=== PATIENT | male | born 1945 | race Caucasian/White ===

== ENCOUNTER 2022-04-22 15:16 | Inpatient (IN) | payer OTHER ==
[~2022-04-22] VITALS: Ht 185.4 cm; Wt 133.4 kg
--- NOTE | 2022-04-22 15:30 | NUR ---
BIB [facility] C/O SOB AND DESATURATION AT [facility] PROGRAM/MUSIC DIRECTOR; HX OF COPD. PLACED ON BED, AAOX4, DYSPNEIC RR- 25, SATURATING AT 96% WITH NRM. MD AND NETWORK DIAGNOSTIC SUPPORT SPECIALIST AT BEDSIDE.
[2022-04-22] MEDS ORDERED: IPRATROPIUM NEB FS 0.5 MG/2.5 ML AMPUL.NEB ONE (15:40)
[2022-04-22] MEDS ORDERED: ALBUTEROL FS 2.5 MG/3 ML VIAL.NEB ONE (15:40)
[2022-04-22] MEDS ORDERED: methylPREDNISolone SOD SUCC 125 MG/2ML VIAL ONE (15:47)
[2022-04-22 15:51] LABS: BASOPHILS % (AUTO) 0.2 % (0.0-2.0); EOSINOPHILS % (AUTO) 5.1 % (0.0-6.0); HEMATOCRIT 41 % (39-51); HEMOGLOBIN 13.1 g/dL (13.5-17.5); LYMPHOCYTES # (AUTO) 1.3 K/uL (0.8-4.8); LYMPHOCYTES % (AUTO) 12.2 % (20.0-44.0); MEAN CORPUSCULAR HGB CONC 32 g/dl (31.0-36.0); MEAN CORPUSCULAR VOLUME 96 fL (80-96); MONOCYTES # (AUTO) 1.3 K/uL (0.1-1.30); MONOCYTES % (AUTO) 11.9 % (2.0-12.0); NEUTROPHILS # (AUTO) 7.6 K/uL (1.8-8.9); NEUTROPHILS % (AUTO) 70.6 % (43.0-81.0); PLATELET COUNT (AUTO) 282 K/uL (150-450); RED BLOOD CELL COUNT(AUTO) 4.27 MIL/uL (4.5-6.0); WHITE BLOOD COUNT (AUTO) 10.8 K/uL (4.3-11.0)
--- NOTE | 2022-04-22 15:52 | NUR ---
BLOOD DRAWN AND SWAB FOR COVID19 SENT TO LAB
[2022-04-22] MEDS ORDERED: IPRATROPIUM NEB FS 0.5 MG/2.5 ML AMPUL.NEB NEB ONE (16:00)
[2022-04-22] MEDS ORDERED: ALBUTEROL FS 2.5 MG/3 ML VIAL.NEB NEB ONE (16:00)
[2022-04-22] MEDS ORDERED: methylPREDNISolone SOD SUCC 125 MG/2ML VIAL IV ONE (16:00)
[2022-04-22 16:03] LABS: CALCIUM, SERUM 8.4 mg/dL (8.5-10.1); CARBON DIOXIDE 27 mmol/L (21-32); CHLORIDE 96 mmol/L (98-107); CREATININE 0.8 mg/dL (0.6-1.3); GLUCOSE 104 mg/dL (74-106); POTASSIUM 5.1 mmol/L (3.5-5.1); SODIUM SERUM 130 mmol/L (136-145); UREA NITROGEN, BLOOD 11 mg/dL (7-18)
[2022-04-22 16:12] LABS: ABG BASE EXCESS -2.6 mmol/L; ABG PCO2 45.1 mmHg (35.0-45.0); ABG PH 7.333 (7.350-7.450); ABG PO2 41.8 mmHg (75.0-100.0); COHb 0.4 % (0.5-1.5); MetHb 0.2 % (0.0-1.5); SITE, ABG Left Radial
[2022-04-22] MEDS ORDERED: FLUT1BLS13 IH (16:13)
[2022-04-22] MEDS ORDERED: DOCU250C14 PO (16:13)
[2022-04-22] MEDS ORDERED: ALBU8.5H8 IH (16:13)
[2022-04-22] MEDS ORDERED: DABI150C PO (16:13)
[2022-04-22] MEDS ORDERED: TIOT4MIS5 IH (16:13)
[2022-04-22] MEDS ORDERED: CHOL100043 PO (16:13)
[2022-04-22] MEDS ORDERED: IPRA4AER IH (16:13)
[2022-04-22] MEDS ORDERED: POTA-10 PO (16:13)
[2022-04-22] MEDS ORDERED: FERR325T23 PO (16:13)
[2022-04-22] MEDS ORDERED: PRAV40TA3 PO (16:13)
[2022-04-22] MEDS ORDERED: PETR113O TP (16:13)
[2022-04-22] MEDS ORDERED: BISA10SU11 RC (16:13)
[2022-04-22] MEDS ORDERED: POLY17PO4 PO (16:13)
[2022-04-22] MEDS ORDERED: LEVO50TA8 PO (16:13)
[2022-04-22] MEDS ORDERED: GABA-532 PO (16:13)
[2022-04-22] MEDS ORDERED: SENN-261 PO (16:13)
[2022-04-22] MEDS ORDERED: ZINC220C6 PO (16:13)
[2022-04-22] MEDS ORDERED: CALC500T52 PO (16:13)
[2022-04-22] MEDS ORDERED: TAMS-12 PO (16:13)
[2022-04-22] MEDS ORDERED: HYDR-3980 PO (16:13)
[2022-04-22] MEDS ORDERED: ACET-868 PO (16:13)
[2022-04-22] MEDS ORDERED: ALBU2.5V38 IH (16:13)
[2022-04-22] MEDS ORDERED: NYST15PO4 TP (16:13)
[2022-04-22] MEDS ORDERED: ONDA4TAB5 PO (16:13)
[2022-04-22] MEDS ORDERED: ASCO-352 PO (16:13)
[2022-04-22] MEDS ORDERED: AMLO2.5T4 PO (16:13)
[2022-04-22] MEDS ORDERED: ZINC56.713 TP (16:13)
[2022-04-22] MEDS ORDERED: MULT-447 PO (16:13)
[2022-04-22] MEDS ORDERED: MAGN400O6 PO (16:13)
[2022-04-22] MEDS ORDERED: NA P133E RC (16:13)
--- NOTE | 2022-04-22 16:14 | NUR ---
move sheet submitted.
[2022-04-22 16:15] LABS: ALANINE AMINOTRANSFERASE 11 U/L (12-78); ALBUMIN 2.4 g/dL (3.4-5.0); ALKALINE PHOSPHATASE 102 U/L (46-116); ASPARTATE AMINOTRANSFERASE 20 U/L (15-37); BILIRUBIN,DIRECT 0.5 mg/dL (0.0-0.2); BILIRUBIN,TOTAL 0.7 mg/dL (0.2-1.0); TOTAL PROTEIN, SERUM 6.4 g/dL (6.4-8.2)
[2022-04-22 16:55] LABS: ABG BASE EXCESS -3.2 mmol/L; ABG PH 7.372 (7.350-7.450); ABG PO2 71.4 mmHg (75.0-100.0); COHb 0.4 % (0.5-1.5); MetHb 0.2 % (0.0-1.5); O2Hb 93.7 % (94.0-97.0); SITE, ABG Right Radial
[2022-04-22] MEDS ORDERED: NITROGLYCERIN PACKET 1 GM PACKET TD ONE (18:30)
[2022-04-22] MEDS ORDERED: FUROSEMIDE 40 MG/4 ML VIAL IV ONE (18:30)
[2022-04-22] MEDS ORDERED: FUROSEMIDE 40 MG/4 ML VIAL ONE (18:45)
[2022-04-22] MEDS ORDERED: NITROGLYCERIN PACKET 1 GM PACKET ONE (18:46)
--- NOTE | 2022-04-22 19:23 | NUR ---
CALLED [facility] [phone] [facility] WILL CALL US BACK.
--- NOTE | 2022-04-22 19:40 | NUR ---
dr hernandez from [place] on the phone with dr martinez
--- NOTE | 2022-04-22 21:49 | NUR ---
CALLED [facility] [phone] PER JOEL THEY ARE STILL WORKING ON BED ASSIGNMENT. AND WILL CALL US BACK.
--- NOTE | 2022-04-22 23:22 | NUR ---
DIONE FROM [facility] CALLED NO BEDS AVAILABLE. AUTH TO STAY [id number] PER HEATHER ORTEGA.
--- NOTE | 2022-04-23 00:36 | NUR ---
MACIE JEANNIE . CALL FOR UPDATE
--- NOTE | 2022-04-23 00:59 | NUR ---
SEEN BY DR HANSEN AT BEDSIDE
--- NOTE | 2022-04-23 01:15 | NUR ---
[facility] PAGED
--- NOTE | 2022-04-23 01:23 | NUR ---
DR. TYRONE AVITIA ON PHONECALL WITH KIAH CAMERON DNP
[2022-04-23] MEDS ORDERED: ALBUTEROL FS 2.5 MG/3 ML VIAL.NEB NEB ONE (01:30)
[2022-04-23] MEDS ORDERED: MAGNESIUM HYDROXIDE 30 ML UDC PO PRN ×2 (01:30→02:00)
[2022-04-23] MEDS ORDERED: IPRATROPIUM NEB FS 0.5 MG/2.5 ML AMPUL.NEB NEB PRN (01:30)
[2022-04-23] MEDS ORDERED: ACETAMINOPHEN 325 MG TABLET PO PRN ×2 (01:30→02:00)
[2022-04-23] MEDS ORDERED: IPRATROPIUM NEB FS 0.5 MG/2.5 ML AMPUL.NEB NEB ONE (01:30)
[2022-04-23] MEDS ORDERED: ALBUTEROL FS 2.5 MG/3 ML VIAL.NEB NEB PRN (01:30)
[2022-04-23] MEDS ORDERED: NA PHOS,M-B/NA PHOS,DI-BA 1 EA ENEMA RC PRN (01:30)
[2022-04-23] MEDS ORDERED: BISACODYL SUPP (10 MG) 10 MG/SUPP.RECT SUPP.RECT RC PRN (01:30)
[2022-04-23] MEDS ORDERED: Z GUARD REMEDY 4 OZ OINT TP PRN (02:00)
[2022-04-23] MEDS ORDERED: ONDANSETRON HCL/PF 4 MG/2 ML VIAL IVP PRN (02:00)
[2022-04-23] MEDS ORDERED: MAG HYDROX/AL HYDROX/SIMETH 30 ML UDC PO PRN (02:00)
[2022-04-23] MEDS ORDERED: TEMAZEPAM 15 MG CAPSULE PO PRN (02:00)
[2022-04-23] MEDS ORDERED: HYDROCODONE/APAP 5/325MG TABLET PO PRN (02:00)
[2022-04-23] MEDS ORDERED: MORPHINE SULFATE INJ 2 MG/ML DISP.SYRIN IV PRN (02:00)
[2022-04-23] MEDS ORDERED: methylPREDNISolone SOD SUCC 40 MG/ML VIAL ONE (05:04)
[2022-04-23] MEDS: methylPREDNISolone SOD SUCC 40 MG/ML VIAL IV SCH ×3 (05:23→21:23)
[2022-04-23] MEDS: PANTOPRAZOLE 40 MG TABLET.DR PO SCH (07:34)
[2022-04-23] MEDS ORDERED: LEVOTHYROXINE SODIUM 25 MCG TABLET ONE (07:34)
[2022-04-23] MEDS ORDERED: PANTOPRAZOLE 40 MG TABLET.DR PO ONE (07:34)
[2022-04-23] MEDS: LEVOTHYROXINE SODIUM 50 MCG TABLET PO SCH (07:34)
--- NOTE | 2022-04-23 07:40 | NUR ---
RT CALLED FOR BREATHING TX
[2022-04-23] MEDS ORDERED: IPRATROPIUM NEB FS 0.5 MG/2.5 ML AMPUL.NEB ONE (08:10)
[2022-04-23] MEDS: IPRATROPIUM NEB FS 0.5 MG/2.5 ML AMPUL.NEB NEB SCH ×8 (08:16→23:40)
--- NOTE | 2022-04-23 08:17 | NUR ---
room 321-2
--- NOTE | 2022-04-23 08:26 | NUR ---
PT REPORT GIVEN TO OMKAR ZHANG
--- NOTE | 2022-04-23 08:31 | NUR ---
room 321-2
[2022-04-23] MEDS: POLYETHYLENE GLYCOL 3350 17 GM POWD.PACK PO SCH (09:00)
[2022-04-23] MEDS ORDERED: FLUTICASONE/VILANTEROL 1 EACH BLST.W.DEV IH SCH (09:00)
[2022-04-23] MEDS: DABIGATRAN ETEXILATE MESYLATE 150 MG CAPSULE PO SCH ×2 (09:00→17:39)
[2022-04-23] MEDS ORDERED: PETROLATUM,WHITE PACKET 5 GM PACKET TP PRN (09:30)
--- NOTE | 2022-04-23 09:40 | NUR ---
Accepting RN Note Patient Arrived to unit safely. AOx4 able to express his own concerns, patient states he is in no pain at the moment. IV s/l with no signs of infiltration. Patient able to provide his own health history, states daughter will be coming in later on today. All safety precautions taken, patient on O2 1lt with no signs of distress. All safety precautions taken, call light and table within reach, bed in fowlers position, at lowest. Will continue to monitor throughout shift.
[2022-04-23] MEDS: FUROSEMIDE 40 MG/4 ML VIAL IV SCH (10:02)
[2022-04-23] MEDS: CHOLECALCIFEROL 1,000 UNIT TABLET (VIT D3) PO SCH (10:02)
[2022-04-23] MEDS: FERROUS SULFATE (325 MG) 325 MG/TAB TABLET PO SCH ×2 (10:03→17:37)
[2022-04-23] MEDS: POTASSIUM CHLORIDE 10 MEQ TABLET.SA PO SCH (10:03)
[2022-04-23] MEDS: DOCUSATE SODIUM 250 MG CAPSULE PO SCH ×2 (10:03→17:37)
[2022-04-23] MEDS: SENNOSIDES 8.6 MG TABLET PO SCH ×2 (10:03→17:37)
[2022-04-23] MEDS: ZINC SULFATE 220 MG CAPSULE PO SCH (10:04)
[2022-04-23] MEDS: ASCORBIC ACID 500 MG TABLET PO SCH (10:04)
[2022-04-23] MEDS: MULTIVITAMINS,THERAGRAN 1 UDTAB TABLET PO SCH (10:04)
[2022-04-23] MEDS: CALCIUM CARBONATE (1250) 500 MG TABLET PO SCH ×2 (10:04→17:37)
[2022-04-23] MEDS: GABAPENTIN 100 MG CAPSULE PO SCH ×3 (10:04→17:38)
[2022-04-23] MEDS: AMLODIPINE BESYLATE 2.5 MG TABLET PO SCH ×2 (10:05→17:37)
--- NOTE | 2022-04-23 10:15 | NUR ---
PT TRANSFERRED TO UNIT VIA POLINA ACLS PROTOCOL. WARM HANDOFF GIVEN TO RN ASSIGNED.
[2022-04-23] MEDS: NYSTATIN TOP POWDER 15 GM BOTTLE TP SCH (10:50)
[2022-04-23] MEDS: ALBUTEROL FS 2.5 MG/3 ML VIAL.NEB NEB SCH ×4 (11:30→23:40)
[2022-04-23] MEDS: LEVOFLOXACIN (250MG) 250 MG TABLET PO SCH (11:58)
[2022-04-23] MEDS: ENOXAPARIN SODIUM 40 MG/0.4 ML DISP.SYRIN SQ SCH (12:01)
[2022-04-23] MEDS: ZINC OXIDE 56.7 GM TUBE TP SCH (15:43)
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
--- NOTE | 2022-04-23 20:00 | NUR ---
RN OPENING NOTES; RECEIVED PT IN BED SLEEPING BUT EASY TO AROUSED,AOX3 ABLE TO MAKES NEED KNOWN.ON 1L O2 VIA NC MARTY WELL SATTING 98%,NO SIGN SOB/DISTRESS NOTED,NO COMPLAIN OF PAIN/DISCOMFORT AT THIS TIME,IV ACCESS L CHEST PORT A CATH PATENT AND INTACT,SAFETY MEASURED INPLACE,CALL LIGHT WITHIN REACH,WILL CONTINUE TO MONITOR.
[2022-04-23 20:35] VITALS: BP 121/77
[2022-04-23] MEDS: ATORVASTATIN 10 MG TABLET PO SCH (21:23)
[2022-04-23] MEDS: TAMSULOSIN 0.4 MG CAP.SR.24H PO SCH (21:23)
[2022-04-23] MEDS ORDERED: DILTIAZEM HCL 25 MG IV IV ONE (21:30)
--- NOTE | 2022-04-23 21:30 | NUR ---
RN NOTES; PATIENT WAS HAVING UNCONTROL AFIB,HR 130 TO 150,I ANNE-MARIE GARCIA,TINY Osborne,WITH A NEW ORDERED CARDIZEM 10MG/2ML,WAS GIVEN,NO SIGN A/R NOTED.
[2022-04-24] VITALS: BP 113/94
--- NOTE | 2022-04-24 01:35 | NUR ---
RN NOTES; PT STILL HAVING UNCONTROL AFIB 140 TO 150 HR,TEXTED TINY GARCIA C,WITH A NEW ORDER AMIODARONE ggt PER PROTOCOL,BUT WE CANNOT GIVE AMIODARONE IN THE UNIT,NOTIFIED CHARGED NURSE RENALDO, SAID GET ORDER TO TINY GARCIA,TRANSFER PT TO [facility].
--- NOTE | 2022-04-24 01:40 | NUR ---
RN NOTES; GIVE REPORT TO JULIETA ESPITIA. RM 115-2.
[2022-04-24] MEDS ORDERED: AMIODARONE 150 MG/3 ML VIAL IV ONE ×2 (02:26)
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
--- NOTE | 2022-04-24 02:50 | NUR ---
RN NOTE STARTED AMIODARONE BOLUS 150 MG/100 ML PER MD ORDER.
--- NOTE | 2022-04-24 03:00 | NUR ---
RN NOTE STARTED AMIODARONE DRIP AT 1 MG/MIN USING 450 MG/250 ML, WILL RUN FOR 6HRS.
[2022-04-24] MEDS: IPRATROPIUM NEB FS 0.5 MG/2.5 ML AMPUL.NEB NEB SCH ×5 (03:30→19:47)
[2022-04-24] MEDS: ALBUTEROL FS 2.5 MG/3 ML VIAL.NEB NEB SCH ×3 (03:30→11:37)
--- NOTE | 2022-04-24 03:59 | NUR ---
RT NOTE TX NOT GIVEN DUE TO PULSE. RN CAROL AWARE. NO RESPIRATORY DISTRESS NOTED.
[2022-04-24 04:00] VITALS: BP 120/55
[2022-04-24] MEDS: methylPREDNISolone SOD SUCC 40 MG/ML VIAL IV SCH ×3 (04:58→21:18)
--- NOTE | 2022-04-24 06:22 | NUR ---
RN NOTE PT IN BED, SLEEPING. NO S/SX OF ACUTE DISTRESS AT THIS TIME. NO SOB, NO PAIN. PT STILL AFIB WITH BBB. O2 SAT IS 94%. AMIO DRIP CURRENTLY RUNNING. WILL ENDORSE TO AM SHIFT NURSE FOR EVERT.
[2022-04-24 06:48] LABS: BASOPHILS # (AUTO) 0.1 K/uL (0.0-0.2); BASOPHILS % (AUTO) 0.6 % (0.0-2.0); HEMATOCRIT 36 % (39-51); HEMOGLOBIN 11.8 g/dL (13.5-17.5); LYMPHOCYTES # (AUTO) 0.4 K/uL (0.8-4.8); LYMPHOCYTES % (AUTO) 3.9 % (20.0-44.0); MEAN CORPUSCULAR HGB CONC 33 g/dl (31.0-36.0); MEAN CORPUSCULAR VOLUME 94 fL (80-96); MONOCYTES # (AUTO) 0.9 K/uL (0.1-1.30); MONOCYTES % (AUTO) 8.9 % (2.0-12.0); NEUTROPHILS # (AUTO) 9.3 K/uL (1.8-8.9); NEUTROPHILS % (AUTO) 86.6 % (43.0-81.0); PLATELET COUNT (AUTO) 255 K/uL (150-450); RED BLOOD CELL COUNT(AUTO) 3.81 MIL/uL (4.5-6.0); WHITE BLOOD COUNT (AUTO) 10.7 K/uL (4.3-11.0)
--- NOTE | 2022-04-24 07:10 | NUR ---
TD RN OPENING NOTES: RECEIVED PATIENT IN BED AWAKE, ALERT AND ORIENTED X 4, ON O 2 2L/MIN VIA NASAL CANULA, RESPIRATION IS EVEN AND UNLABORED,NO PAIN OR DISCOMFORT. ON AMIODARONE DRIP 1MG/MIN. WITH HR 97.IV ACCESS LEFT UPPER CHEST ROSA CATH, PT NOTED WITH LEFT ARM WITH SPLINT, PER REPORT NO FRACTURE BUT FOR SUPPORT ONLY.WITH LEFT BKA.BED IN LOW AND LOCKED POSTION, SIDE RAILS UP, CALL LIGHT WITHIN REACH.WILL MONITOR
[2022-04-24 07:22] LABS: CHOLESTEROL 152 mg/dL (<200); HDL CHOLESTEROL 51 mg/dL (40-60); LDL 81 mg/dL (0-99); THYROID STIMULATING HORMONE 1.353 uIU/mL (0.358-3.74); TRIGLYCERIDES 190 mg/dL (30-150)
[2022-04-24 07:35] LABS: CALCIUM, SERUM 8.5 mg/dL (8.5-10.1); CARBON DIOXIDE 28 mmol/L (21-32); CHLORIDE 94 mmol/L (98-107); CREATININE 0.9 mg/dL (0.6-1.3); GLUCOSE 191 mg/dL (74-106); PHOSPHORUS 2.8 mg/dL (2.5-4.9); POTASSIUM 4.1 mmol/L (3.5-5.1); SODIUM SERUM 132 mmol/L (136-145); UREA NITROGEN, BLOOD 20 mg/dL (7-18)
[2022-04-24 08:00] VITALS: BP 121/73
[2022-04-24] MEDS: PANTOPRAZOLE 40 MG TABLET.DR PO SCH (08:33)
[2022-04-24] MEDS: LEVOTHYROXINE SODIUM 50 MCG TABLET PO SCH (08:34)
--- NOTE | 2022-04-24 09:00 | NUR ---
RN NOTES: CALLED PHARMACY TO DELIVER AMIODARONE AWAITING TO CLARIFY ORDER, CHARGE NURSE CIRILO CARVAJAL
[2022-04-24] MEDS: GABAPENTIN 100 MG CAPSULE PO SCH ×3 (09:33→17:37)
[2022-04-24] MEDS: CHOLECALCIFEROL 1,000 UNIT TABLET (VIT D3) PO SCH (09:34)
[2022-04-24] MEDS: MULTIVITAMINS,THERAGRAN 1 UDTAB TABLET PO SCH (09:34)
[2022-04-24] MEDS: POTASSIUM CHLORIDE 10 MEQ TABLET.SA PO SCH (09:34)
--- NOTE | 2022-04-24 09:34 | NUR ---
WOUND CARE CONSULT: PT UNSTABLE AT THIS TIME TO BE TURNED FOR SKIN ASSESSMENT PER DIRECTOR OPERATING ROOM. DISCUSSED SKIN PROTECTION WITH NURSING STAFF. [facility] AIR BED ORDERED. IN AGREEMENT WITH PLAN OF CARE. WILL SEE PT PT CONDITION PERMITS.
[2022-04-24] MEDS: DOCUSATE SODIUM 250 MG CAPSULE PO SCH ×2 (09:35→17:36)
[2022-04-24] MEDS: ZINC SULFATE 220 MG CAPSULE PO SCH (09:35)
[2022-04-24] MEDS: AMLODIPINE BESYLATE 2.5 MG TABLET PO SCH ×2 (09:35→17:37)
[2022-04-24] MEDS: CALCIUM CARBONATE (1250) 500 MG TABLET PO SCH ×2 (09:35→17:36)
[2022-04-24] MEDS: ASCORBIC ACID 500 MG TABLET PO SCH (09:36)
[2022-04-24] MEDS: SENNOSIDES 8.6 MG TABLET PO SCH ×2 (09:36→17:36)
[2022-04-24] MEDS: FERROUS SULFATE (325 MG) 325 MG/TAB TABLET PO SCH ×2 (09:36→17:36)
[2022-04-24] MEDS: POLYETHYLENE GLYCOL 3350 17 GM POWD.PACK PO SCH (09:37)
[2022-04-24] MEDS: ENOXAPARIN SODIUM 40 MG/0.4 ML DISP.SYRIN SQ SCH (09:37)
[2022-04-24] MEDS: FUROSEMIDE 40 MG/4 ML VIAL IV SCH (09:38)
[2022-04-24] MEDS: DABIGATRAN ETEXILATE MESYLATE 150 MG CAPSULE PO SCH ×2 (09:47→17:36)
[2022-04-24] MEDS: NYSTATIN TOP POWDER 15 GM BOTTLE TP SCH (09:54)
[2022-04-24] MEDS: ZINC OXIDE 56.7 GM TUBE TP SCH (09:54)
[2022-04-24] MEDS ORDERED: AMIODARONE 150 MG in IV D5W 100 ML IV ONE (10:00)
--- NOTE | 2022-04-24 10:05 | NUR ---
rn notes: unable t scan amiodarone drip pharmacy aware dose changed to 0.5 mg/minbp 121/73, hr 83. DR Chino aware to continue amiodarone drip
[2022-04-24] MEDS ORDERED: AMIODARONE 450 MG in IV D5W 250 ML IV PRN (10:30)
[2022-04-24 11:14] LABS: THYROID STIMULATING HORMONE 1.377 uIU/mL (0.358-3.74)
[2022-04-24] MEDS ORDERED: AMIODARONE 450 MG in IV D5W 241 ML IV PRN (11:30)
[2022-04-24] MEDS: LEVOFLOXACIN (250MG) 250 MG TABLET PO SCH (11:47)
[2022-04-24 12:00] VITALS: BP 130/65
--- NOTE | 2022-04-24 12:00 | NUR ---
RN NOTES: CONTINUE AMIODARONE DRIP, STILL A FIB , WILL MONITOR
[2022-04-24 16:00] VITALS: BP 116/83
--- NOTE | 2022-04-24 16:00 | NUR ---
RN NOTES: WOUND CARE DONE, FAMILY AT BEDSIDE,PT DENIED ANY PAIN OR DISCOMFORT
--- NOTE | 2022-04-24 18:30 | NUR ---
FUAD Wilhelm NP NOTIFIED PATIENT GOING TO [facility] AWAITS TRANSFER SUMMARY.
--- NOTE | 2022-04-24 19:28 | NUR ---
ISELA CALLED C/O AYLA PT ACCEPTED IN [facility] ,NUMBER FOR REPORT ,ACCEPTING MD DR. Danielle VALENCIA PICKUP AT [phone],FAMILY AT BEDSIDE NOTIFIED.ENDORSED TO BRITTANIE CHARGE NURSE FOR PSYCH SOCIAL WORKER.
--- NOTE | 2022-04-24 19:30 | NUR ---
RN Closing Note Pt. AOx4 . Patient with no signs of discomfort or distress. Provided care as needed and medications as prescribed All safety precautions taken throughout shift. IV with no signs of infiltration, no pain at site reported. Performed skin assessment. Patient remained safe, call light and table within reach, bed at lowest position. Will endorse report to night nurse for continuity of care.
--- NOTE | 2022-04-24 19:36 | NUR ---
PATIENT GOING TO RM [id number].DARYL
--- NOTE | 2022-04-24 19:40 | NUR ---
NOTIFIED PT. GOING TO [facility] AWAITS TRANSFER SUMMARY.
--- NOTE | 2022-04-24 19:45 | NUR ---
DARYL RN OPENING NOTES: RECEIVED PATIENT IN BED AWAKE, ALERT AND ORIENTED X 4, ON O2 AT 2L/MIN VIA NASAL CANULA, RESPIRATION IS EVEN AND UNLABORED, NO PAIN OR DISCOMFORT AT THIS TIME. ON AMIODARONE DRIP 0.5MG/MIN. WITH HR 128 AFIB C PVC'S. IV ACCESS ON LEFT UPPER CHEST ROSA CATH, PT NOTED WITH LEFT ARM WITH SPLINT,NOTED WITH LEFT BKA. SAFTEY ,MEASURES IN PLACED; BED IN LOWEST AND LOCKED POSITION, SIDE RAILS UP, CALL LIGHT WITHIN REACH. FAMILY MEMBER AT BEDSIDE. WILL CONTINUE TO MONITOR THROUGHOUT THE SHIFT.
[2022-04-24 20:00] VITALS: BP 123/83
--- NOTE | 2022-04-24 20:45 | NUR ---
RN NOTE REPORT GIVEN TO EMILY RN AT [facility] RM 5108 FOR CONTINUITY OF CARE.
[2022-04-24] MEDS: ATORVASTATIN 10 MG TABLET PO SCH (21:18)
[2022-04-24] MEDS: TAMSULOSIN 0.4 MG CAP.SR.24H PO SCH (21:18)
--- NOTE | 2022-04-24 22:45 | NUR ---
RN NOTE PATIENT PICKED UP BY AMBULANCE TRANSFER TO [facility]. BELONGINGS TAKEN WITH PATIENT, HANGED NEW BAG OF AMIODARONE DRIP, UNABLE TO SCAN BAG DUE TO D/C STATUS ON eMAR. MILY GU MADE AWARE.
== END 2022-04-24 23:44 | disposition short-term general hospital (02) | DRG 193 ==
LOC: ER 15:44 → TRANSITION 04-23 03:10 → TELE 04-23 08:36 → TELE-TD 04-24 03:07
PROVIDERS: ADMIT Nurse Practitioner Acute Care; ATTEND Nurse Practitioner Acute Care
DX: J15.9 Unspecified bacterial pneumonia (principal); J96.01 Acute respiratory failure with hypoxia; J44.1 Chronic obstructive pulmonary disease with (acute) exacerbation; E87.1 Hypo-osmolality and hyponatremia; Z20.822 Contact with and (suspected) exposure to COVID-19; Z85.46 Personal history of malignant neoplasm of prostate; Z91.018 Allergy to other foods; Z91.048 Other nonmedicinal substance allergy status; Z79.51 Long term (current) use of inhaled steroids; Z79.899 Other long term (current) drug therapy; I48.91 Unspecified atrial fibrillation; E78.5 Hyperlipidemia, unspecified; G89.29 Other chronic pain; Y95 Nosocomial condition; G47.33 Obstructive sleep apnea (adult) (pediatric); D50.9 Iron deficiency anemia, unspecified; E03.9 Hypothyroidism, unspecified; E66.9 Obesity, unspecified; Z68.39 Body mass index [BMI] 39.0-39.9, adult; E88.09 Other disorders of plasma-protein metabolism, not elsewhere classified; E66.01 Morbid (severe) obesity due to excess calories; N40.0 Benign prostatic hyperplasia without lower urinary tract symptoms; Z79.01 Long term (current) use of anticoagulants; Z87.891 Personal history of nicotine dependence; I10 Essential (primary) hypertension
CPT/HCPCS: 36415; 36600; 71045-TC; 80048-TC; 80061-TC; 80076-TC; 82803-TC; 83735-TC; 83880; 84100-TC; 84439-TC; 84443-TC; 84484-TC; 85025-TC; 87081-TC; 93307-TC; 94762-TC; 94799-TC; 97110-TC; 97112-TC; 97530-TC; A4217; A6253; A6403; C9803; G0378; J0282; J1650; J1940; J2270; J2405; J2920; J2930; J3490; J7060